=== PATIENT | male | born 1990 | race Caucasian/White ===

== ENCOUNTER 2022-01-21 06:46 | Day surgery (SDC) | payer OTHER ==
[~2022-01-21] VITALS: Ht 172.7 cm; Wt 68.0 kg
[2022-01-21] MEDS ORDERED: LIDOCAINE 1% 500 MG/50 ML VIAL ONE (07:23)
[2022-01-21] MEDS ORDERED: BUPIVACAINE-MPF 0.25% 30 ML VIAL INJ ONE (07:23)
[2022-01-21] MEDS ORDERED: HYDROGEN PEROXIDE 3% 240 ML BTL TP ONE (07:26)
[2022-01-21] MEDS ORDERED: ceFAZolin 1,000 MG VIAL ONE (09:18)
[2022-01-21] MEDS ORDERED: KETOROLAC 30 MG/ML VIAL ONE ×2 (09:31→09:58)
[2022-01-21] MEDS ORDERED: SEVOFLURANE 250 ML BTL INH ONE (09:31)
[2022-01-21] MEDS ORDERED: fentaNYL citrate 0.05 MG/ML VIAL ONE (09:37)
[2022-01-21] MEDS ORDERED: ONDANSETRON 4 MG/2 ML VIAL ONE ×2 (09:57)
[2022-01-21] MEDS ORDERED: PROPOFOL 200 MG/20 ML VIAL IV ONE (09:57)
[2022-01-21] MEDS ORDERED: METOCLOPRAMIDE 10 MG/2 ML INJ VIAL ONE (09:58)
[2022-01-21] MEDS ORDERED: LACTATED RINGERS 1,000 ML IV SCH (10:15)
[2022-01-21] MEDS ORDERED: HYDROmorphone 1 MG/ML AMP IVP PRN (10:15)
[2022-01-21] MEDS ORDERED: hydrALAZINE 20 MG/ML VIAL IVP PRN (10:16)
[2022-01-21] MEDS ORDERED: LABETALOL 20 MG/4 ML VIAL IVP PRN (10:16)
== END 2022-01-21 11:15 | disposition home or self-care (01) ==
LOC: MDS 06:46 → MMU 06:46 → MDS 11:15
PROVIDERS: ATTEND Surgery
DX: A51.31 Condyloma latum (principal); Z20.822 Contact with and (suspected) exposure to COVID-19
CPT/HCPCS: 46924; 71045; 87426; J0690; J1885; J2001; J2405; J2704; J2765; J3010; J3490